=== PATIENT | male | born 1960 | race Caucasian/White ===

== ENCOUNTER → 2021-02-10 14:37 | Outpatient (CLI) | payer OTHER, MEDICAID, SELFPAY ==
[2021-02-10 15:27] LABS: COVID19 -Nasal RAPID Negative (Negative)
== END ==
PROVIDERS: Visit Provider Family Medicine Sleep Medicine
DX: Z20.822 Contact with and (suspected) exposure to COVID-19 (principal)
CPT/HCPCS: 87635; C9803

== ENCOUNTER → 2025-07-17 14:34 | Outpatient (CLI) | payer OTHER, SELFPAY ==
--- NOTE | 2025-07-17 14:38 | DI.RAD.S_ITS ---
PROCEDURE: XR KNEE LT 3V INDICATIONS: LT KNEE PAIN TECHNIQUE: 3 views of the knee were acquired. COMPARISON: None. FINDINGS: Minimal degenerative changes of the left knee with minimal joint space narrowing Kellgren Dean grade 1-2. No radiographic evidence of displaced fracture, knee joint effusion dislocation or high attenuation foreign body. IMPRESSION: Minimal degenerative changes. If symptoms persist or worsen, or there is high clinical suspicion of knee abnormality, MRI could be performed. Dictated by: Perez Palacios M.D. on 07/17/2025 at 23:18 Approved by: Perez Palacios M.D. on 07/17/2025 at 23:20
== END ==
PROVIDERS: PCP Internal Medicine; Referring Provider Family Medicine; Visit Provider Family Medicine
DX: M25.562 Pain in left knee (principal)
CPT/HCPCS: 73562

== ENCOUNTER → 2025-07-23 18:33 | Outpatient (CLI) | payer OTHER, SELFPAY ==
--- NOTE | 2025-07-23 18:37 | DI.MRI.S_ITS ---
PROCEDURE: MR KNEE LT WO CON INDICATIONS: pain in left knee TECHNIQUE: Noncontrast sagittal PD fast spin echo and T2 fast spin echo with fat saturation, sagittal 3-D FLASH with fat saturation; coronal T1 spin echo and PD fast spin echo with fat saturation, and axial PD fast spin echo with fat saturation through the knee. COMPARISON: None. FINDINGS: Image quality: Excellent. Bones and cartilage: There is a linear area of low T1 high T2 bone edema in the proximal left fibula head suspicious for nondisplaced fracture. Bone contusion or trabecular injury could have a similar appearance. Proximal fibula for head fractures may be associated with ankle injuries. Otherwise no other areas of abnormal bone edema, no dislocation. Mild diffuse cartilage thinning in the medial, lateral and patellofemoral compartments most notably in the medial and lateral patellar facets. No focal cartilage defect. Menisci: The medial and lateral menisci demonstrate normal morphology and internal signal. The meniscal root ligaments appear intact. Cruciate ligaments: The anterior and posterior cruciate ligaments appear intact. Medial structures: Mild increased T2 weighted signal and areas of thickening distal semimembranosus, tendinopathy without full-thickness tear or retraction. The medial collateral ligament appears intact. Visualized portions of the pes anserinus tendons appear normal. No abnormal bursal fluid. Lateral structures: Mild edema in the soft tissues laterally adjacent to the lateral collateral ligament without full-thickness tear or retraction. The long and short heads of the biceps femoris tendon appear intact. The popliteus tendon appears normal. Iliotibial band appears normal. Anterior structures: Mild increased T2 weighted signal, tendinopathy distal quadriceps tendon. Mild edema in the infrapatellar fat pad adjacent to the proximal patellar ligament which is otherwise normal. No evidence of patella anabela.. Patellar alignment is normal. No femoral trochlear dysplasia or ventral trochlear prominence. Joint space: No significant knee joint effusion. Small 2 cm cc by 1 cm AP x 1 cm transverse popliteal cyst. IMPRESSION: Nondisplaced fracture left fibula head as discussed above with adjacent soft tissue edema. Degenerative changes with diffuse cartilage thinning without focal cartilage defect. Other findings as discussed above. Dictated by: Perez Palacios M.D. on 07/24/2025 at 9:55 Approved by: Perez Palacios M.D. on 07/24/2025 at 10:08
== END ==
LOC: MRI 18:34
PROVIDERS: PCP Internal Medicine; Referring Provider Internal Medicine; Visit Provider Family Medicine
DX: S82.832A Other fracture of upper and lower end of left fibula, initial encounter for closed fracture (principal); M71.22 Synovial cyst of popliteal space [Baker], left knee; R60.0 Localized edema; M25.562 Pain in left knee
CPT/HCPCS: 73721